=== PATIENT | female | born 1955 | race Two or more races ===

== ENCOUNTER 2018-12-18 20:27 | Emergency (ER) | payer OTHER ==
[~2018-12-18] VITALS: Ht 175.3 cm; Wt 104.3 kg
== END 2018-12-18 22:49 | disposition home or self-care (01) ==
LOC: ER 20:27
DX: N93.8 Other specified abnormal uterine and vaginal bleeding (principal); N83.8 Other noninflammatory disorders of ovary, fallopian tube and broad ligament